=== PATIENT | female | born 1995 ===

== ENCOUNTER 2018-05-16 17:24 | Emergency (ER) | payer SELFPAY ==
[2018-05-16 17:29] VITALS: RESP 18
--- NOTE | 2018-05-16 18:01 | C.PDOC ---
History Of Present Illness 22 year old female, who is currently around 5 weeks , presents to the ED for evaluation of abdominal cramping and light pink blood noted in urine last night. Patient denies any blood in urine today or any pain today. Patient took a home test, which was positive for . She has not yet started care due to insurance issues. Otherwise, patient denies fever, chills, back pain. Patient is . Patient is requesting documentation for positive test. Time Seen by Provider: 05/16/18 17:55 Chief Complaint (Nursing): Female Genitourinary History Per: Patient History/Exam Limitations: no limitations Onset/Duration Of Symptoms: Days Current Symptoms Are (Timing): Still Present Quality Of Discomfort: Cramping Associated Symptoms: Urinary Symptoms (light pink blood in urine ). denies: Fever, Chills, Back Pain : 1 Para: 0 Past Medical History Reviewed: Historical Data, Nursing Documentation, Vital Signs Vital Signs: Last Vital Signs Temp 98.1 F 05/16/18 17:28 Pulse 96 H 05/16/18 17:28 Resp 18 05/16/18 17:28 BP 138/83 05/16/18 17:28 Pulse Ox 100 05/16/18 17:28 - Medical History PMH: No Chronic Diseases Surgical History: No Surg Hx Family History: States: Unknown Family Hx - Social History Hx Tobacco Use: No Hx Alcohol Use: Yes Hx Substance Use: Yes (marijuana) - Immunization History Hx Tetanus Toxoid Vaccination: No Hx Influenza Vaccination: No Hx Pneumococcal Vaccination: No Review Of Systems Constitutional: Negative for: Fever, Chills Gastrointestinal: Positive for: Other (abdominal cramping ) Genitourinary: Positive for: Other (light pink blood in urine ) Musculoskeletal: Negative for: Back Pain Physical Exam - Physical Exam Appears: Non-toxic, No Acute Distress Skin: Normal Color, Warm, Dry Head: Atraumatic, Normacephalic Eye(s): bilateral: Normal Inspection, EOMI Oral Mucosa: Moist Neck: Supple Chest: Symmetrical, No Deformity, No Tenderness Respiratory: Normal Breath Sounds, No Rales, No Rhonchi, No Wheezing Gastrointestinal/Abdominal: Soft, No Tenderness, No Guarding, No Hernia Pelvic: Normal External Exam, No Vaginal Bleeding, No Vaginal Discharge, No Cervical Motion Tenderness, Other (cervical os closed) Extremity: Normal ROM Neurological/Psych: Oriented x3, Normal Speech ED Course And Treatment O2 Sat by Pulse Oximetry: 100 (on RA) Pulse Ox Interpretation: Normal Medical Decision Making Medical Decision Making: Impression: 22 year old female estimated 5 weeks with light pink blood in urine Plan: * urinalysis and test Progress: urinalysis and test resulted positive. Patient remained well in no distress. She has no abdominal pain or tenderness, pelvic exam unremarkable. 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 - Scribe Statement The provider has reviewed the documentation as recorded by the Scribe (Yaa Carlisle) All medical record entries made by the Scribe were at my direction and personally dictated by me. I have reviewed the chart and agree that the record accurately reflects my personal performance of the history, physical exam, medical decision making, and the department course for this patient. I have also personally directed, reviewed, and agree with the discharge instructions and disposition.
[2018-05-16 18:40] LABS: SQUAMOUS EPITHIAL 5 /hpf (0-5); URINE BACTERIA RARE (<OCC); URINE BILIRUBIN NEGATIVE (NEGATIVE); URINE BLOOD 1+ (NEGATIVE); URINE CLARITY Clear (Clear); URINE COLOR Yellow (YELLOW); URINE GLUCOSE (UA) NORMAL (Normal); URINE LEUKOCYTE ESTERASE NEG Leu/uL (Negative); URINE PROTEIN NEGATIVE (NEGATIVE); URINE UROBILINOGEN NORMAL mg/dL (0.2-1.0)
[2018-05-16 18:41] LABS: HCG,QUALITATIVE URINE POSITIVE (NEGATIVE)
[2018-05-16 19:09] VITALS: BP 99/56; PULSE 70; TEMP 98; O2SAT 96
== END 2018-05-16 19:09 | disposition home or self-care (01) ==
LOC: C.ER 17:24
DX: Z32.01 Encounter for pregnancy test, result positive (principal)